=== PATIENT | male | born 1945 | race Native Hawaiian/Other Pacific Islander ===

== ENCOUNTER 2016-04-22 11:19 | Day surgery (SDC) | payer OTHER | END 2016-04-22 12:30 | disposition home or self-care (01) | LOC: OR 11:19 | PROC: 08RK3JZ Replacement of Left Lens with Synthetic Substitute, Percutaneous Approach (ICD-10-PCS; principal; 2016-04-22) | DX: H25.812 Combined forms of age-related cataract, left eye (principal) | CPT/HCPCS: 66984; J2250; J2704; J3010; V2632 ==